=== PATIENT | male | born 1950 | race Caucasian/White ===

== ENCOUNTER 2016-05-27 19:31 | Emergency (ER) | payer OTHER ==
[~2016-05-27] VITALS: Ht 177.8 cm; Wt 68.0 kg
[2016-05-27 19:31] VITALS: BP_SYST 138
--- NOTE | 2016-05-27 19:31 | NUR ---
Placed in room 06. Placed on cardiac rehab nurse, blood pressure machine and pulse oximeter. To gown for exam. Side rails up.
--- NOTE | 2016-05-27 19:35 | NUR ---
ER Dr. Mckeon at bedside examining patient.
--- NOTE | 2016-05-27 19:45 | NUR ---
Pt brought in by BLS. Reports he was at restaurant and "blacked out." Pt not c/o any pain at this time. Denies SOB, visual problems, fever, chills. No acute distress noted. Respirations even and unlabored. Will continue to monitor.
[2016-05-27 19:53] LABS: BASOPHILS # (AUTO) 0.1 K/uL (0.0-0.2); BASOPHILS % (AUTO) 0.9 % (0.0-2.0); EOSINOPHILS # (AUTO) 0.1 K/uL (0.0-0.4); EOSINOPHILS % (AUTO) 1.7 % (0.0-4.0); HEMATOCRIT 41.6 % (36-54); HEMOGLOBIN 14.4 g/dL (14.0-18.0); LYMPHOCYTES # (AUTO) 3.1 K/uL (1.0-5.5); LYMPHOCYTES % (AUTO) 44.2 % (20.5-51.5); MEAN CORPUSCULAR HEMOGLOBIN 32 pg (27-31); MEAN CORPUSCULAR HGB CONC 35 % (32-36); MEAN CORPUSCULAR VOLUME 92 fL (79.0-98.0); MONOCYTES # (AUTO) 0.5 K/uL (0.0-1.0); MONOCYTES % (AUTO) 7.7 % (1.7-9.3); NEUTROPHILS # (AUTO) 3.1 K/uL (1.8-7.7); NEUTROPHILS % (AUTO) 45.5 % (40.0-70.0); PLATELET COUNT (AUTO) 147 K/uL (130-430); RED BLOOD CELL COUNT(AUTO) 4.53 MIL/uL (4.2-6.2); RED CELL DISTRIBUTION WIDTH 12.4 % (9.0-15.0); WHITE BLOOD COUNT (AUTO) 6.9 K/uL (4.8-10.8)
[2016-05-27 20:02] LABS: ANION GAP 6 (5-15); CALCIUM 9.4 mg/dL (8.4-11.0); CHLORIDE 101 mmol/L (98-107); CREATININE 0.94 mg/dL (0.55-1.30); GLUCOSE 110 mg/dL (70-99); POTASSIUM 3.8 mmol/L (3.5-5.1); SODIUM SERUM 140 mmol/L (136-145); UREA NITROGEN, BLOOD 21 mg/dL (8-21)
[2016-05-27 20:05] LABS: INR 0.9 (0.80-1.20)
[2016-05-27 20:05] LABS: GFR AFRICAN AMERICAN 104 mL/min (>90)
[2016-05-27 20:07] LABS: ALANINE AMINOTRANSFERASE 29 U/L (12-78); ALBUMIN 4.1 g/dL (3.4-4.8); ASPARTATE AMINOTRANSFERASE 9 U/L (10-37); TOTAL BILIRUBIN 0.3 mg/dL (0.0-1.0); TOTAL PROTEIN, SERUM 7.6 g/dL (6.4-8.3)
[2016-05-27 20:09] LABS: ACETAMINOPHEN < 1 ug/mL (1-30)
[2016-05-27 20:21] LABS: ALCOHOL, BLOOD 10 mg/dL (<10)
[2016-05-27 21:32] VITALS: BP_SYST 136
--- NOTE | 2016-05-27 21:32 | NUR ---
Patient given written and verbal discharge instructions and verbalizes understanding. ER MD discussed with patient the results and treatment provided. Given copies of tests performed in ER. Patient in stable condition. ID arm band removed. IV catheter removed intact and dressing applied, no active bleeding. No RX given. Patient educated on pain management and to follow up with PMD. Pain Scale 0/10. Opportunity for questions provided and answered.
== END 2016-05-27 21:32 | disposition home or self-care (01) ==
LOC: SED 19:31
DX: R55 Syncope and collapse (principal); R03.0 Elevated blood-pressure reading, without diagnosis of hypertension; Z88.5 Allergy status to narcotic agent; Z86.73 Personal history of transient ischemic attack (TIA), and cerebral infarction without residual deficits
CPT/HCPCS: 36415; 70450; 71010; 80053; 84484; 85025; 85610; 85730; 99285; G0480; G0482; 93005